=== PATIENT | male | born 1995 | race Caucasian/White ===

== ENCOUNTER 2022-07-16 00:29 | Emergency (ER) | payer SELFPAY ==
[2022-07-16] MEDS ORDERED: Lorazepam 2 MG/ML VIAL ONE (00:45)
[2022-07-16 01:06] LABS: #Eosinphils 0.1 10x3/uL (0.0-0.5); #Monocytes 0.4 10x3/uL (0.0-1.1); %Basophils 0.2 % (0.0-2.0); %Eosinophils 0.6 % (0.0-6.0); %Lymphocytes 10.6 % (18.0-47.0); %Monocytes 4.2 % (0.0-10.0); Hemoglobin 16.4 g/dL (13.5-17.5); Mean Corpuscular HGB CONC 36.6 g/dL (32.0-36.0); Mean Corpuscular Hemoglobin 31.7 pg (27.0-33.0); Mean Corpuscular Volume 86.7 fl (81.2-95.1); Mean Platelet Volume 9.4 fl (7.4-10.4); Platelet Count 334 10x3/uL (150-450); RBC Distribution Width 11.3 % (11.5-14.5); Red Blood Cell (RBC) Count 5.17 10x6/uL (4.32-5.72); White Blood Cell (WBC) Count 9.6 10x3/uL (3.5-10.5)
[2022-07-16 01:20] LABS: ALT (SGPT) 27 U/L (8-55); AST (SGOT) 22 U/L (5-34); Albumin 4.4 g/dL (3.5-5.0); Alkaline Phosphatase 71 U/L (40-110); Anion Gap 16 mmol/L (10-20); BUN (Urea Nitrogen) 19 mg/dL (8.9-20.6); Bilirubin, Total 0.5 mg/dL (0.2-1.2); Calc. Creatinine Clearance 0 mL/min (70-130); Calcium 9.9 mg/dL (7.8-10.44); Carbon Dioxide 22 mmol/L (22-29); Chloride 101 mmol/L (98-107); Estimated GFR 90; Globulin 3.1 g/dL (2.4-3.5); Glucose 143 mg/dL (70-105); Potassium 3.9 mmol/L (3.5-5.1); Protein, Total 7.5 g/dL (6.0-8.3); Sodium 135 mmol/L (136-145)
== END 2022-07-16 02:35 | disposition home or self-care (01) ==
LOC: CSHERS 00:29
DX: T62.0X1A Toxic effect of ingested mushrooms, accidental (unintentional), initial encounter (principal)
CPT/HCPCS: 80053; 85025; 96374; J2060